=== PATIENT | male | born 1985 | race Caucasian/White ===

== ENCOUNTER 2018-08-18 16:27 | Emergency (ER) | payer SELFPAY ==
[2018-08-18] MEDS ORDERED: Morphine 4 MG/ML VIAL IVP ONE ×2 (17:34→19:14)
[2018-08-18] MEDS ORDERED: Tdap Vaccine 0.5 ml Vial (10-64 yrs) IM ONE ×2 (17:35→18:46)
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
[2018-08-18] MEDS ORDERED: Morphine 4 MG/ML VIAL ONE (19:34)
[2018-08-18 19:45] VITALS: O2SAT 98
[2018-08-18] MEDS ORDERED: Hydrogen Peroxide 237 ML SOL TP ONE (20:17)
[2018-08-18] MEDS ORDERED: Hydrogen Peroxide 3% Soln (480ml) TP ONE (20:19)
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
[2018-08-19 05:40] VITALS: BP 131/55; PULSE 73; RESP 18; TEMP 98.5
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
--- NOTE | 2018-08-19 11:53 | CT ---
Date of service: 08/18/2018 PROCEDURE: CT right elbow HISTORY: fall onto Right elbow, evaluate fracture COMPARISON: Not available TECHNIQUE: 2.5 mm contiguous axial sections were acquired through the right elbow. Sagittal and coronal images were reformatted from the axial scan. FINDINGS: There is a comminuted intra-articular displaced supracondylar fracture with extension through the medial condyle. There is impaction and angulation. The radial head and proximal ulna are intact. There is no olecranon fracture. No definite hemarthrosis. IMPRESSION: Comminuted intra-articular supracondylar fracture with extension through the medial condyle. Angulation and impaction are noted. No additional fracture identified.
== END 2018-08-18 22:30 | disposition home or self-care (01) ==
LOC: H.ER 16:27
DX: S52.501A Unspecified fracture of the lower end of right radius, initial encounter for closed fracture (principal); S09.90XA Unspecified injury of head, initial encounter; S09.93XA Unspecified injury of face, initial encounter; W19.XXXA Unspecified fall, initial encounter; Y92.89 Other specified places as the place of occurrence of the external cause
CPT/HCPCS: 29105; 70450; 70486; 73060; 73080; 73200; 90471; 90715; 96374; 96376; 99285; J2270